=== PATIENT | male | born 1985 | race African-American/Black ===

== ENCOUNTER 2018-02-12 15:45 | Emergency (ER) | payer MEDICAID, OTHER ==
[~2018-02-12] VITALS: Ht 170.2 cm; Wt 68.0 kg
[2018-02-12 16:27] VITALS: BP 108/69
[2018-02-12 16:51] LABS: CLARITY URINE CLOUDY (CLEAR); COLOR URINE YELLOW (YELLOW); KETONES URINE NEGATIVE (NEGATIVE); LEUKOCYTE ESTERASE URINE NEGATIVE (NEGATIVE); NITRITE URINE NEGATIVE (NEGATIVE); OCCULT BLOOD URINE NEGATIVE (NEGATIVE); PH URINE 7.5 (4.5-8.0); PROTEIN URINE NEGATIVE (NEGATIVE); SPECIFIC GRAVITY URINE 1.021 (1.005-1.030); UROBILINOGEN URINE 0.2 E.U./dL (0.2-1.0)
== END 2018-02-12 23:18 | disposition left against medical advice (07) ==
LOC: ER 16:58
DX: M54.2 Cervicalgia (principal); M54.5 Low back pain; R20.0 Anesthesia of skin; F12.90 Cannabis use, unspecified, uncomplicated; Z87.81 Personal history of (healed) traumatic fracture
CPT/HCPCS: 81003; 99283

== ENCOUNTER 2018-02-13 08:51 | Emergency (ER) | payer MEDICAID, OTHER | END 2018-02-13 10:07 | disposition left against medical advice (07) | LOC: ER 09:22 | DX: Z53.21 Procedure and treatment not carried out due to patient leaving prior to being seen by health care provider (principal) ==